=== PATIENT | female | born 1955 | race Caucasian/White ===

== ENCOUNTER 2016-08-25 12:31 | Outpatient (CLI) | payer OTHER ==
[2012-11-17 09:31] VITALS: O2SAT 97
== END 2016-08-25 12:32 | disposition home or self-care (01) | DRG 558 ==
LOC: CONVCARE 12:31
PROVIDERS: ATTEND Orthopaedic Surgery
DX: M70.62 Trochanteric bursitis, left hip (principal); M70.61 Trochanteric bursitis, right hip
CPT/HCPCS: 72195

== ENCOUNTER 2018-02-17 13:13 | Day surgery (SDC) | payer OTHER ==
[2018-02-17] MEDS ORDERED: TRIAMCINOLONE ACETONIDE 40 MG/ML SUS ONE (13:32)
[2018-02-17] MEDS ORDERED: BUPIVACAINE HCL 0.25% MPF 30 ML SOL INFIL ONE (13:32)
[2018-02-17 13:33] VITALS: TEMP 97.8
[2018-02-17 13:47] VITALS: RESP 18
[2018-02-17 14:06] VITALS: BP 127/91; PULSE 79; O2SAT 96
== END 2018-02-17 14:25 | disposition home or self-care (01) | DRG 554 ==
LOC: SURG 13:13
PROVIDERS: ATTEND Nurse Anesthetist, Certified Registered
DX: M12.9 Arthropathy, unspecified (principal)
CPT/HCPCS: J3300

== ENCOUNTER 2018-04-21 09:35 | Day surgery (SDC) | payer MEDICARE, BC ==
[2018-04-21] MEDS ORDERED: LIDOCAINE HCL 1% MPF 30 SOL ONE (10:04)
[2018-04-21] MEDS ORDERED: BUPIVACAINE HCL 0.5% MPF 10 ML SOL ONE (10:05)
[2018-04-21 10:59] VITALS: BP 109/77; PULSE 74; RESP 16; TEMP 98; O2SAT 99
== END 2018-04-21 10:55 | disposition home or self-care (01) | DRG 554 ==
LOC: SURG 09:35
PROVIDERS: ATTEND Nurse Anesthetist, Certified Registered
DX: M12.88 Other specific arthropathies, not elsewhere classified, other specified site (principal)
CPT/HCPCS: J2001

== ENCOUNTER 2018-05-11 13:48 | Day surgery (SDC) | payer MEDICARE, BC ==
[2018-05-11] MEDS ORDERED: LIDOCAINE HCL 2% MPF 10 ML SOL ONE (14:07)
[2018-05-11] MEDS ORDERED: LIDOCAINE HCL 1% MPF 30 SOL ONE (14:07)
[2018-05-11 14:42] VITALS: BP 117/72; PULSE 64; RESP 18; TEMP 97.4; O2SAT 97
== END 2018-05-11 15:00 | disposition home or self-care (01) | DRG 554 ==
LOC: SURG 13:48
PROVIDERS: ATTEND Nurse Anesthetist, Certified Registered
DX: M12.88 Other specific arthropathies, not elsewhere classified, other specified site (principal)
CPT/HCPCS: J2001

== ENCOUNTER 2018-06-08 12:28 | Day surgery (SDC) | payer MEDICARE, BC ==
[2018-06-08] MEDS ORDERED: SODIUM CHLORIDE 0.9% FLUSH 10 ML SOL IV ONE (12:59)
[2018-06-08] MEDS ORDERED: LIDOCAINE HCL 2% MPF 10 ML SOL ONE (13:02)
[2018-06-08] MEDS ORDERED: BUPIVACAINE HCL 0.25% MPF 30 ML SOL INFIL ONE (13:03)
[2018-06-08] MEDS ORDERED: LIDOCAINE HCL 1% MPF 30 SOL ONE (13:03)
[2018-06-08] MEDS: FENTANYL 100MCG/2ML SOL ONE ×2 (13:13→13:43)
[2018-06-08] MEDS: MIDAZOLAM 2 MG/2 ML SOL ONE ×2 (13:18→13:51)
[2018-06-08] MEDS: TRIAMCINOLONE ACETONIDE 40 MG/ML SUS ONE ×3 (13:37→13:59)
[2018-06-08 13:59] VITALS: BP 112/78
[2018-06-08 14:09] VITALS: PULSE 74; RESP 14; TEMP 97.7; O2SAT 96
== END 2018-06-08 14:39 | disposition home or self-care (01) | DRG 554 ==
LOC: SURG 12:28
PROVIDERS: ATTEND Nurse Anesthetist, Certified Registered
DX: M12.88 Other specific arthropathies, not elsewhere classified, other specified site (principal)
CPT/HCPCS: J2250; J3010; J2001; J3300